=== PATIENT | male | born 1935 | race Caucasian/White ===

== ENCOUNTER 2021-11-26 09:20 | Day surgery (SDC) | payer MEDICARE ==
[2021-11-26] VITALS (14 sets, daily range): BP systolic 108–152; BP diastolic 49–116
[~2021-11-26] VITALS: Ht 182.9 cm; Wt 99.1 kg
[2021-11-26] MEDS ORDERED: diphenhydrAMINE 25mg capsule PO PRN (09:45)
[2021-11-26 10:21] LABS: BASOPHILS # (AUTO) 0.1 X10'3 (0-0.2); BASOPHILS % (AUTO) 0.8 % (0-1); EOSINOPHILS # (AUTO) 0.2 X10'3 (0-0.9); EOSINOPHILS % (AUTO) 3.6 % (0-6); HEMATOCRIT 29.7 % (42.0-52.0); HEMOGLOBIN 9.5 g/dl (14.0-17.9); LYMPHOCYTES # (AUTO) 1.1 X10'3 (1.1-4.8); LYMPHOCYTES % (AUTO) 17.4 % (21-51); MEAN CORPUSCULAR HEMOGLOBIN 28.4 PG (27.0-31.0); MEAN CORPUSCULAR HGB CONC 31.9 g/dL (33.0-36.5); MEAN CORPUSCULAR VOLUME 89.2 FL (78-98); MEAN PLATELET VOLUME 6.8 FL (7.4-10.4); MONOCYTES # (AUTO) 0.5 X10'3 (0-0.9); MONOCYTES % (AUTO) 8.6 % (2-12); NEUTROPHILS # (AUTO) 4.2 X10'3 (1.8-7.7); NEUTROPHILS % (AUTO) 69.6 % (42-75); PLATELET COUNT 197 X10'3 (140-440); RED BLOOD COUNT 3.33 X10'6 (4.70-6.10); RED CELL DISTRIBUTION WIDTH 16.8 % (11.5-14.5)
[2021-11-26] MEDS ORDERED: [UNRECOGNIZED DRUG - CODE] PO (10:38)
[2021-11-26] MEDS ORDERED: CHOL500049 PO (10:38)
[2021-11-26] MEDS ORDERED: ALPH100C PO (10:38)
[2021-11-26] MEDS ORDERED: ASCO500C18 PO (10:38)
[2021-11-26] MEDS ORDERED: CARV6.253 PO (10:38)
[2021-11-26] MEDS ORDERED: FLUT50DI3 IH (10:38)
[2021-11-26] MEDS ORDERED: ZINC50CA2 PO (10:38)
[2021-11-26] MEDS ORDERED: LOSA50TA3 PO (10:38)
[2021-11-26] MEDS ORDERED: FURO40TA4 PO (10:38)
[2021-11-26] MEDS ORDERED: FERR236T3 PO (10:38)
[2021-11-26] MEDS ORDERED: OMEG-79 PO (10:38)
[2021-11-26] MEDS ORDERED: ROSU20TA2 PO (10:38)
[2021-11-26] MEDS ORDERED: UBID100C16 PO (10:38)
[2021-11-26] MEDS ORDERED: OMEP20CA16 PO (10:38)
[2021-11-26 10:43] LABS: ALBUMIN 3.6 G/DL (3.4-5.0); ANION GAP 12 (8-16); BLOOD UREA NITROGEN 55 MG/DL (7-18); BUN/CREATININE RATIO 28.4 (5.4-32.0); CALCIUM 8.7 MG/DL (8.5-10.1); CHLORIDE 102 MMOL/L (99-107); CREATININE 1.94 MG/DL (0.60-1.10); GLUCOSE 122 MG/DL (70-104); MAGNESIUM 2.6 MG/DL (1.5-2.4); POTASSIUM 4.6 MMOL/L (3.5-5.1); SODIUM 140 MMOL/L (135-145); TOTAL CARBON DIOXIDE 26.5 MMOL/L (24-32); eGFR 33 ML/MIN
[2021-11-26] MEDS ORDERED: verapamil 2.5 mg/ml inj IV ONE (11:52)
[2021-11-26] MEDS ORDERED: nitroGLYCERIN-Tridil 50MG/D5W 250 ML IV ONE (11:52)
[2021-11-26] MEDS ORDERED: heparin 1,000unit/ml 10ml vial 10 ML ONE (11:53)
[2021-11-26] MEDS ORDERED: iohexol 350MG/ML 100ml bottle IV ONE ×2 (11:53→13:26)
[2021-11-26] MEDS ORDERED: midazolam 1 mg/ML 2ml injection ONE (11:53)
[2021-11-26] MEDS ORDERED: iohexol 350 MG/ML 50ML vial IV ONE (11:53)
[2021-11-26] MEDS ORDERED: LIDOcaine 1% (10mg/ml)w/preservative inj. 20ml MDV ONE (11:53)
[2021-11-26] MEDS ORDERED: fentaNYL/PF 50MCG/1 ML 2ML syringe ONE (11:53)
[2021-11-26] MEDS ORDERED: clopidogrel 300mg tablet ONE (13:46)
[2021-11-26] MEDS ORDERED: normal saline 1000ml 1,000 ML IV SCH (14:30)
[2021-11-26] MEDS ORDERED: ondansetron/PF 4mg/2ml inj IV PRN (14:30)
[2021-11-26] MEDS ORDERED: furosemide 20 MG/2 ML vial IV ONE (15:00)
== END 2021-11-26 19:00 | disposition home or self-care (01) ==
LOC: SSTAY O 09:20
PROVIDERS: ATTEND Internal Medicine Cardiovascular Disease
DX: I35.0 Nonrheumatic aortic (valve) stenosis (principal); I25.10 Atherosclerotic heart disease of native coronary artery without angina pectoris; I25.2 Old myocardial infarction; I42.9 Cardiomyopathy, unspecified; E11.22 Type 2 diabetes mellitus with diabetic chronic kidney disease; I13.0 Hypertensive heart and chronic kidney disease with heart failure and stage 1 through stage 4 chronic kidney disease, or unspecified chronic kidney disease; N18.4 Chronic kidney disease, stage 4 (severe); I50.20 Unspecified systolic (congestive) heart failure; J44.9 Chronic obstructive pulmonary disease, unspecified; I27.20 Pulmonary hypertension, unspecified; Z98.890 Other specified postprocedural states; Z79.899 Other long term (current) drug therapy; Z87.891 Personal history of nicotine dependence; Z88.0 Allergy status to penicillin; Z79.82 Long term (current) use of aspirin
CPT/HCPCS: 36415; 80048; 82948; 83735; 85025; 85610; 93460; 99152; 99153; C1725; C1751; C1769; C1874; C1894; C9600; J1644; J1940; J2250; J3010; J3490; Q0163; Q9967; 93461; A4620; A5120; A6258